=== PATIENT | female | born 1985 | race African-American/Black ===

== ENCOUNTER 2017-06-15 16:06 | Emergency (ER) | payer MEDICAID, OTHER ==
[~2017-06-15] VITALS: Ht 160 cm; Wt 68.0 kg
[2017-06-15 16:13] VITALS: BP 136/85
== END 2017-06-15 19:30 | disposition left against medical advice (07) ==
LOC: ER 17:05
DX: M54.2 Cervicalgia (principal); Z53.21 Procedure and treatment not carried out due to patient leaving prior to being seen by health care provider